=== PATIENT | female | born 1985 | race Caucasian/White ===

== ENCOUNTER 2022-05-12 00:11 | Day surgery (SDC) | payer OTHER, SELFPAY ==
[2022-05-02 10:52] VITALS: BMI 30.7
[2022-05-12 11:43] VITALS: BP 133/76; PULSE 87; RESP 18; TEMP 37.1; O2SAT 98
[2022-05-12] MEDS: LACTATED RINGERS 1,000 ML 150 ML IV CONT (11:48)
--- NOTE | 2022-05-12 12:41 | P.PNAN_ITS ---
Anes - Initial Pre Proc Eval Procedure: Operation Date: 05/12/22 13:00 Proposed Procedures p Esophagogastroduodenoscopy EGD - Arash Kenney MD Date/Time: 05/12/22 12:41 Surgeon: Arash Kenney MD Pre Op Diagnosis: dysphagia Patient Data Age: 37 Gender: F Height: 1.68 m Weight: 94.1 kg Last Vital Signs Temp 98.7 F 05/12/22 11:43 Pulse 87 05/12/22 11:43 Resp 18 05/12/22 11:43 BP 133/76 05/12/22 11:43 Pulse Ox 98 05/12/22 11:43 O2 Del Method Room Air 05/12/22 11:43 Allergies Allergy/AdvReac Type Severity Reaction Status Date / Time cat dander Allergy Unknown Unknown Verified 05/12/22 11:42 dog dander Allergy Unknown Unknown Verified 05/12/22 11:42 egg Allergy Unknown lip Verified 05/12/22 11:42 swelling, throat closes mold Allergy Unknown Unknown Verified 05/12/22 11:42 Home Medications Medication Instructions Recorded Confirmed Type cetirizine 10 mg capsule (Zyrtec) 10 mg PO DAILY 12/07/19 05/12/22 History Patient hx anesthesia problems: none Family hx anesthesia problems: none Results Review: All pre-operative results and documents have been reviewed as part of the pre- operative evaluation. [facility] Past Medical History Medical History CAP (community acquired pneumonia) Internal derangement of left knee Nicotine dependence, unspecified, uncomplicated quit years ago Nontoxic single thyroid nodule Surgical History Surgical History History of ankle surgery (~2011) History of (~2013) History of (~2017) Family History Family History Sibling Family history of malignant melanoma Other Family history of malignant neoplasm of thyroid Social History Social History Smoking status: Former smoker Alcohol intake: current Drinks per week: 5 Substance use type: does not use Living arrangements: with family Spiritual care concerns: No Anes - Eval Final PreProcedure Day of Procedure 05/12/22 12:41 Patient weight: normal Heart: regular rate and rhythm Lungs: clear to auscultation Airway: Mallampati scale class II Neurological: alert and oriented Last oral intake: >/= 8 hours ASA classification: II Emergent: no Anesthetic plan: proceed Anesthesia type and monitoring: general GIVS and standard monitoring Results Review: All pre-operative results and documents have been reviewed as part of the pre- operative evaluation. Informed Consent: The patient's anesthetic plan and its attendant risks and benefits were discussed with the patient/family/POA. Questions were solicited and answers provided to the satisfaction of the patient/family/POA.
--- NOTE | 2022-05-12 12:58 | PM.HPGS ---
History of Present Illness History of Present Illness Consent: Risks, benefits, and alternatives have been discussed and questions answered. Patient agrees to proceed with procedure. Chief complaint: dysphagia Narrative: Gabrielle Araujo is a 37 year old female with choking sensation after eating certain meals or pills, never had egd, she is not using ppi Review of Systems Constitutional: Constitutional: Denies headache(s) and Denies weakness Eyes: Eyes: Denies blurry vision ENT: Reports Normal hearing present, Denies headache(s) and Denies neck pain Cardiovascular: Cardiovascular: Denies chest pain and Denies dyspnea Respiratory: Respiratory: Denies dyspnea Gastrointestinal: Gastrointestinal: Reports no additional gastrointestinal complaints Genitourinary: Genitourinary: Denies dysuria Musculoskeletal: Musculoskeletal: Denies neck pain Integumentary/Breasts: Skin/Breast: Denies dry skin Neurologic: Reports Normal hearing present, Denies headache(s) and Denies weakness Psychiatric: Psychiatric: Denies anxiety Endocrine: Endocrine: Denies change in body appearance Hematologic/Lymphatic: Hematologic/Lymphatic: Denies easy bleeding Allergic/Immunologic: Allergic/Immunologic: Denies urticaria PMFSH Past Medical History Medical History CAP (community acquired pneumonia) Internal derangement of left knee Nicotine dependence, unspecified, uncomplicated quit years ago Nontoxic single thyroid nodule Surgical History Surgical History History of ankle surgery (~2011) History of (~2013) History of (~2017) Family History Family History Sibling Family history of malignant melanoma Other Family history of malignant neoplasm of thyroid Social History Social History Smoking status: Former smoker Alcohol intake: current Drinks per week: 5 Substance use type: does not use Living arrangements: with family Spiritual care concerns: No Meds Home Medications and Allergies Home Medications Medication Instructions Recorded Confirmed Type cetirizine 10 mg capsule (Zyrtec) 10 mg PO DAILY 12/07/19 05/12/22 History Allergies Allergy/AdvReac Type Severity Reaction Status Date / Time cat dander Allergy Unknown Unknown Verified 05/12/22 11:42 dog dander Allergy Unknown Unknown Verified 05/12/22 11:42 egg Allergy Unknown lip Verified 05/12/22 11:42 swelling, throat closes mold Allergy Unknown Unknown Verified 05/12/22 11:42 Vital Signs Vital Signs - 24 hr 05/12/22 11:43 Temperature 98.7 F Pulse Rate 87 Respiratory Rate 18 Blood Pressure 133/76 Pulse Oximetry 98 Oxygen Delivery Room Air Exam Const: General: comfortable and no acute distress HENMT: Face/Nose/Sinus: Normal nares present Eyes: General: appearance normal, both eyes and all related structures Neck: Neck: no JVD Resp: Auscultation: clear to auscultation bilaterally Cardio: Rate: regular rate Rhythm: regular rhythm GI: Inspection: non-distended GI Palp: Yes Soft to palpation Skin: General skin exam: normal color Neuro: General: gait normal Speech: normal speech Extrem: General: normal to inspection Psych: Mental Status: mental status grossly normal Assessment and Plan Assessment and plan (1) Dysphagia: Qualifiers: Dysphagia type: pharyngoesophageal phase Qualified Code(s): R13.14 - Dysphagia, pharyngoesophageal phase Code(s): R13.10 - Dysphagia, unspecified Status: Acute Assessment and Plan: egd with bx
[2022-05-12 13:13] VITALS: BP 124/68; PULSE 86; RESP 18; O2SAT 96
[2022-05-12 13:23] VITALS: BP 111/74; PULSE 92; RESP 18; O2SAT 100
[2022-05-12 13:33] VITALS: BP 113/78; PULSE 78; RESP 18; O2SAT 100
== END 2022-05-12 13:39 | disposition home or self-care (01) ==
PROVIDERS: PCP Family Medicine; Visit Provider Internal Medicine Gastroenterology
PROC: 0DJ08ZZ Inspection of Upper Intestinal Tract, Via Natural or Artificial Opening Endoscopic (ICD-10-PCS; CPT 43235; principal; 2022-05-12 13:00)
DX: K22.2 Esophageal obstruction (principal); K44.9 Diaphragmatic hernia without obstruction or gangrene; K20.0 Eosinophilic esophagitis; Z87.891 Personal history of nicotine dependence
CPT/HCPCS: 43239; 43249; 88305; C1726; J2704; J7120

== ENCOUNTER 2022-08-06 00:36 | Day surgery (SDC) | payer OTHER, SELFPAY ==
--- NOTE | 2022-07-24 14:01 | PC.NURSE ---
Report to the Outpatient Waiting Room, entrance under the green pavilion located off [facility], at time _0600_ on date _08/06/22_. Planned Procedure Time: _0730__. Time changes happen often and if your time is changed the preop area will call you the afternoon before. - You and your visitor will be asked to self-screen and do not enter if you have any COVID symptoms. - Only one visitor is requested with a max of two and NO children visitors are allowed at this time. - The patient visitor may be requested to leave or wait in car when not with patient due to distancing restrictions. - A mask is optional within the hospital at this time. Patients may have clear liquids (water, carbonated beverages, clear teas, apple juice) until 3 hours prior to surgery with a maximum of 20 ounces. - No food from midnight until time of surgery - Infants may have breast milk until 4 hours before surgery, formula 6 hours prior to surgery. - Children will be allowed to drink immediately following surgery. If applicable, please bring a bottle or sippy cup to assist with drinking. Juice, water, soda, and popsicles are readily available. For infants on formula, please bring formula the day of surgery. Pacifiers are allowed. Take the following medications with a SIP of water the morning of surgery: __none___ DO NOT STOP ANY OF YOUR OTHER PRESCRIPTION MEDICATIONS PRIOR TO SURGERY ?EXCEPT THE FOLLOWING Medications to discontinue per physician ___vitamins or supplements 3 days prior____ Date to take last dose Please no make-up, nail german, hairspray, perfume, deodorant, or body powder the day of surgery. No jewelry (including any body piercings) or valuables the day of surgery, leave them at home. Please take a shower or bath the night before, or the morning of, surgery with an antibacterial soap. Wear comfortable, loose fitting clothing. Children are encouraged to wear pajamas. - Jewelry must be removed prior to entering the operating room. Rings and piercings that are not removed may be cut off. - The hospital will not accept responsibility for valuables. - Please leave all valuables, including medications, at home the day of surgery. If you are going home after surgery, a licensed lease purchase driver must drive you home. - NO public transportation without another adult if you receive anesthesia. - We recommend that an adult stay with you for 24 hours following discharge. - We also recommend that you do not drive, make important decision, drink alcoholic beverages, or take any drugs that were not prescribed by your health care provider for at least 24 hours after your discharge time. For Pediatric surgeries, we recommend two adults accompany the child home. Follow any additional instructions given to you from your surgeon. If you or anyone in your household have experienced Covid symptoms in the past week, please notify your surgeon or the nurse liaison at the phone number below for possible testing. Telephone instructions given to _Patient__and asked if any additional questions and then verbalized understanding. Patient advised to call surgeon office or pre surgery nurse liaison [phone] if any additional questions.
[2022-07-24 14:06] VITALS: BMI 30.7
[2022-08-06] VITALS (8 sets, daily range): BP systolic 96–128; BP diastolic 65–76; PULSE 68–100; RESP 10–19; TEMP 36.6–37.3; O2SAT 95–100
[2022-08-06] MEDS: ACETAMINOPHEN 500 MG TABLET 1000 MG PO (06:19)
[2022-08-06] MEDS: LACTATED RINGERS 1,000 ML 30 ML IV CONT ×2 (06:35→10:00)
[2022-08-06] MEDS: KETOROLAC 15 MG/ML VIAL (*BKC) IV PUSH (06:52)
--- NOTE | 2022-08-06 07:01 | WPDANESEPPF ---
Anes - Initial Pre Proc Eval Procedure: Operation Date: 08/06/22 07:30 Proposed Procedures p Left Arthroscopic Anterior Cruciate Ligament Reconstruction, Lateral Meniscectomy, Possible Meniscus Repair - Serjio Robertson MD Date/Time: 08/06/22 07:01 Surgeon: Serjio Robertson MD Pre Op Diagnosis: deficiency acl left knee Patient Data Age: 37 Gender: F Height: 1.68 m Weight: 94 kg Last Vital Signs Temp 37.3 C 08/06/22 06:39 Pulse 87 08/06/22 06:39 Resp 16 08/06/22 06:39 BP 114/70 08/06/22 06:39 Pulse Ox 97 08/06/22 06:39 O2 Del Method Room Air 08/06/22 06:39 Allergies Allergy/AdvReac Type Severity Reaction Status Date / Time cat dander Allergy Unknown Unknown Verified 08/06/22 06:18 dog dander Allergy Unknown Unknown Verified 08/06/22 06:18 egg Allergy Unknown lip Verified 08/06/22 06:18 swelling, throat closes mold Allergy Unknown Unknown Verified 08/06/22 06:18 Home Medications Medication Instructions Recorded Confirmed Type cetirizine 10 mg capsule (Zyrtec) 10 mg PO DAILY PRN Allergic 12/07/19 07/31/22 History Symptoms omeprazole 40 mg capsule,delayed 40 mg PO DAILY #30 caps 07/10/22 07/31/22 Rx release Patient hx anesthesia problems: none Family hx anesthesia problems: none Results Review: All pre-operative results and documents have been reviewed as part of the pre-operative evaluation. [facility] Past Medical History Medical History CAP (community acquired pneumonia) Eosinophilic esophagitis Esophageal ring GERD (gastroesophageal reflux disease) Internal derangement of left knee Nicotine dependence, unspecified, uncomplicated quit years ago Nontoxic single thyroid nodule Surgical History Surgical History History of ankle surgery (~2011) History of (~2013) History of (~2017) Family History Family History Sibling Family history of malignant melanoma Other Family history of malignant neoplasm of thyroid Social History Social History Smoking status: Never smoker Alcohol intake: current Drinks per week: 3 Substance use: never Substance use type: does not use Lack of Transportation: No Lack of Food: Never True Current Housing: I Have Housing Concerned About Future Housing: No Difficulty Paying Gas/Electric Bills: No Difficulty Paying for Meds: No Currently Unemployed: No Education: Associate Degree Difficulty w/ Childcare or Family Care: No Living arrangements: with family Spiritual care concerns: No Anes - Eval Final PreProcedure Day of Procedure 08/06/22 07:01 Patient weight: overweight Heart: regular rate and rhythm Lungs: clear to auscultation Airway: Mallampati scale class II Neurological: alert and oriented Last oral intake: >/= 8 hours ASA classification: II Emergent: no Anesthetic plan: proceed Anesthesia type and monitoring: general LMA and standard monitoring Results Review: All pre-operative results and documents have been reviewed as part of the pre-operative evaluation. Informed Consent: The patient's anesthetic plan and its attendant risks and benefits were discussed with the patient/family/POA. Questions were solicited and answers provided to the satisfaction of the patient/family/POA.
--- NOTE | 2022-08-06 07:18 | WPDHPUPDATE1 ---
History and Physical Update Update Date/Time: 08/06/22 07:18 History and Physical has been reviewed, including an updated exam of the patient. There are NO changes in the patient's condition. Risks, benefits, and alternatives have been discussed and questions answered. Patient agrees to proceed with procedure.
[2022-08-06] MEDS: ceFAZolin 2 GM/D5W 50 ML 2 GM/50 ML BAG IVPB (07:38)
[2022-08-06] MEDS: BUPIVACAINE/EPINEPHRINE 0.5% 10 ML VIAL INFILTRATE (09:51)
--- NOTE | 2022-08-06 10:27 | SUR.PHASEI ---
1026: Simple mask removed.
[2022-08-06] MEDS: diphenhydrAMINE HCl INJ 50 MG/ML VIAL 25 MG IV PUSH (10:30)
--- NOTE | 2022-08-06 10:55 | W.PM.PROC2 ---
Procedure Note - Detailed Date of Procedure 08/06/22 Pre-op Diagnosis 1. Anterior cruciate ligament deficiency left knee 2. Lateral meniscus tear Post-op Diagnosis Other (1. Anterior cruciate ligament deficiency left knee 2. Medial meniscus tear 3. Subtle old healed lateral meniscus tear. ) Procedure Performed 1. Arthroscopic anterior cruciate ligament reconstruction with patellar tendon allograft 2. Arthroscopic medial meniscus repair Surgeon Serjio Robertson MD Managing Principal Linda Lovelace PA-C Anesthesia General Indications Recurrent instability and pain. Findings Complete ACL disruption. Some scarring of the fibers to the posterior capsule and PCL. Early degenerative changes grade 2 to lateral aspect of the medial femoral condyle. 1 cm longitudinal split in the posterior horn of the medial meniscus. Lateral meniscus showed minimal scarring in the under surface posteriorly but no definite tear. Description of Procedure Preoperative antibiotics were given. A general anesthetic was administered. The knee was prepped and draped in usual sterile fashion and placed in the arthroscopic leg dinh. Standard inferomedial inferolateral and superior medial arthroscopic portals. Inflow was obtained with the saline pump. Inspection revealed disruption of the ACL with some healed fibers posteriorly. This was easily debrided. The notch was prepared in a subtle notchplasty performed. Lateral meniscus was inspected. There was a small area of scarring on the undersurface posteriorly but this was not definitive and not appear to be unstable in any fashion. Medial joint showed some early chondromalacia in the medial femur. There was a significant rent in the posterior meniscus with a longitudinal tear in the red red zone. Repair initially with a single anchor. This held until the end of the case and it appeared to have cut through so an additional vertical mattress was placed followed by an undersurface horizontal mattress which repaired the meniscus very nicely. The ACL graft was prepared on the back table for 10 mm bone tunnels by 25 mm. 10 mm high quality tendon graft obtained. Femur was drilled with the flexible reaming system from the anterior medial portal. The 7 mm offset guide was used. 30 mm tunnel. 25 mm graft inserted later. Tibia prepared at 60? with the ACL guide. 10 mm tunnel. Graft passed without difficulty. 7 x 20 metal interference screws used on the femur and 8 x 25 on the tibia. Graft was very nice throughout the range of motion. It was tension at 30? of flexion with a slight posterior drawer. There was no impingement in the notch. There was a small area of scar tissue along the superior medial pouch. This was simply excised with the arthroscopic shaver. The arthroscopic instruments were removed. The wounds were closed with interrupted 2-0 Vicryl suture on the tibial wound 4-0 Monocryl in the portals and a running 4-0 Monocryl in the subcutaneous tissue of the tibial wound. Steri-Strips placed on all incisions. Sterile bulky dressing with immobilizer placed. The patient was extubated and brought to recovery room in stable condition. There were no complications. Estimated blood loss 20 mL. Implants Alberto interference screws. Titanium. 7 x 20 on the femur and 8 x 25 on the tibia. Bone-patellar bone allograft. Estimated Blood Loss -20.0 Pathology None sent Complications No immediate complications Condition Stable Disposition PACU [facility] Billing Surgery - Charge Forward: Surgery Billing
== END 2022-08-06 11:50 | disposition home or self-care (01) ==
PROVIDERS: PCP Family Medicine; Visit Provider Orthopaedic Surgery
PROC: (CPT 29888; principal; 2022-08-06 07:30)
DX: S83.512A Sprain of anterior cruciate ligament of left knee, initial encounter (principal); S83.242A Other tear of medial meniscus, current injury, left knee, initial encounter; X50.0XXA Overexertion from strenuous movement or load, initial encounter; K21.9 Gastro-esophageal reflux disease without esophagitis
CPT/HCPCS: 29881; 29888; A9270; C1713; J0690; J1100; J1170; J1200; J1885; J2250; J2370; J2405; J2704; J3010; J7120; L1830